=== PATIENT | female | born 1950 | race Caucasian/White ===

== ENCOUNTER → 2021-11-04 10:26 | Outpatient (CLI) | payer OTHER, SELFPAY ==
--- NOTE | ~2021-11-04 | DEXA_ITS ---
Bone Density Report Name: EARLENE MILLIGAN Age: 70 Sex: Female Ethnicity: White Date of : 1950 Indication: osteopenia; postmenopausal Referring Provider: Rizwana, Hilary Coats Study: Bone densitometry was performed. Exam Date: November 04, 2021 Accession number: [id number] Bone Density: Region BMD T-score Z-score Classification AP Spine (L1-L4) 0.909 -1.3 0.8 Osteopenia Femoral Neck (Left) 0.576 -2.5 -0.7 Osteoporosis Total Hip (Left) 0.731 -1.7 -0.3 Osteopenia Femoral Neck (Right) 0.611 -2.1 -0.4 Osteopenia Total Hip (Right) 0.745 -1.6 -0.2 Osteopenia Total Hip Mean 0.738 -1.7 -0.3 Osteopenia World Health Organization criteria for BMD impression classify patients as: Normal (T-score at or above -1.0), Osteopenia (T-score between -1.0 and -2.5), or Osteoporosis (T-score at or below -2.5). 10-year Fracture Risk: FRAX not reported because: Some T-score for Spine Total or Hip Total or Femoral Neck at or below -2.5 Previous Exams: Region Exam Age BMD T-score BMD Change BMD Change Date g/cm2 vs Baseline vs Previous AP Spine(L1-L4) 11/04/2021 70 0.909 -1.3 0.006 0.006 02/18/2018 67 0.902 -1.3 Total Hip(Left) 11/04/2021 70 0.731 -1.7 -0.025 0.014 02/18/2018 67 0.716 -1.8 -0.039 -0.039 11/14/2002 52 0.755 -1.5 Total Hip(Right) 11/04/2021 70 0.745 -1.6 -0.206 -0.011 02/18/2018 67 0.756 -1.5 -0.195 -0.195 11/14/2002 52 0.950 0.1 *Denotes significance at 95% confidence level, LSC for AP Spine = 0.022 g/cm2, LSC for Total Hip = 0.027 g/cm2 Clinical Information Provided by Patient: Has used the following medications: Actonel (i.e. risedronate), Vitamin D Patient maximum height was 60 Menopause Age: 48 Drinks caffeinated beverages Onset of menses at age 13 Number of children 2 Impression: The patient has osteoporosis, based on the Left Femoral Neck T-score. No significant bone loss was observed. Discussion: INCREASED RISK OF FRACTURE. BONE DENSITY IS UNDESIRABLY LOW AT ONE OR MORE SKELETAL SITES, CONSISTENT WITH POSTMENOPAUSAL OSTEOPOROSIS. This patient's lowest T-score meets the World Health Organization's (WHO) criteria for osteoporosis at one or more sites (T-score -2.5 or below). In untreated patients, the risk of osteoporotic fracture increases approximately two-fold for each 1.0 SD decrease in T-score. Low bone density
== END ==
PROVIDERS: PCP Internal Medicine; Visit Provider Internal Medicine
DX: Z78.0 Asymptomatic menopausal state (principal); M85.88 Other specified disorders of bone density and structure, other site; M81.0 Age-related osteoporosis without current pathological fracture; M85.851 Other specified disorders of bone density and structure, right thigh
CPT/HCPCS: 77080

== ENCOUNTER → 2022-08-06 13:29 | Outpatient (CLI) | payer OTHER, SELFPAY ==
--- NOTE | ~2022-08-06 | MM_ITS ---
EXAMINATION: MM screening ramos RT w hira HISTORY: Screening mammogram TECHNIQUE: Craniocaudal and mediolateral oblique 3-D tomosynthesis images were obtained and synthetic 2-D images were generated. CAD analysis was submitted and interpreted. COMPARISON: April 10, 2015, March 27, 2014, March 24, 2013 right screening mammogram examinati ons; status post left mastectomy for breast cancer. BREAST PARENCHYMAL COMPOSITION: The breasts are heterogeneously dense, which may obscure small masses . FINDINGS: There is no evidence of suspicious mass, calcification, or architectural distortion to sugg est malignancy in either breast. There has been no suspicious interval change. IMPRESSION: 1. Status post left mastectomy for breast cancer. No mammographic evidence of right breast malignancy . 2. Recommend routine screening mammography in one year. BI-RADS Category 1: Negative Reviewed, dictated and finalized at location A. IMPRESSION: 1. Status post left mastectomy for breast cancer. No mammographic evidence of r ight breast malignancy. 2. Recommend routine screening mammography in one year. BI-RADS Category 1: Negative
== END ==
PROVIDERS: PCP Internal Medicine; Visit Provider Internal Medicine
DX: Z12.31 Encounter for screening mammogram for malignant neoplasm of breast (principal)
CPT/HCPCS: 77063; 77067

== ENCOUNTER 2023-09-10 13:52 | Outpatient (CLI) | payer OTHER, SELFPAY ==
--- NOTE | ~2023-09-10 | MM_ITS ---
EXAMINATION: MM screening ramos RT w hira HISTORY: Screening TECHNIQUE: Craniocaudal and mediolateral oblique 3-D tomosynthesis images were obtained and synthetic 2-D images were generated. CAD analysis was submitted and interpreted. COMPARISON: Comparison to multiple prior studies sequentially, with oldest reviewed study dated 10/2014. BREAST PARENCHYMAL COMPOSITION: Not dense: There are scattered areas of fibroglandular density. FINDINGS: There is no evidence of suspicious mass, calcification, or architectural distortion to sugg est malignancy in the right breast. There has been no suspicious interval change. IMPRESSION: 1. No mammographic evidence of malignancy. 2. Recommend routine screening mammography in one year. BI-RADS Category 1: Negative Reviewed, dictated and finalized at location B.
== END 2023-09-10 13:53 ==
LOC: MICIMG 13:53
PROVIDERS: PCP Internal Medicine; Visit Provider Internal Medicine
DX: Z12.31 Encounter for screening mammogram for malignant neoplasm of breast (principal)
CPT/HCPCS: 77063; 77067

== ENCOUNTER 2024-09-12 13:49 | Outpatient (CLI) | payer OTHER, SELFPAY ==
--- NOTE | ~2024-09-12 | MM_ITS ---
EXAMINATION: MM screening ramos RT w hira HISTORY: Screening TECHNIQUE: Craniocaudal and mediolateral oblique 3-D tomosynthesis images were obtained and synthetic 2-D images were generated. CAD analysis was submitted and interpreted. COMPARISON: Comparison to multiple prior studies sequentially, with oldest reviewed study dated 04/10/2015. BREAST PARENCHYMAL COMPOSITION: Not dense: There are scattered areas of fibroglandular density. FINDINGS: There is no evidence of suspicious mass, calcification, or architectural distortion to sugg est malignancy in the right breast. There has been no suspicious interval change. IMPRESSION: 1. No mammographic evidence of malignancy. 2. Recommend routine screening mammography in one year. Routine yearly screening mammogram and regular clinical breast examination are recommended. BI-RADS CATEGORY 1 - NEGATIVE Reviewed, dictated and finalized at location B.
== END 2024-09-12 13:50 | disposition home or self-care (01) ==
LOC: MICIMG 13:51
PROVIDERS: PCP Internal Medicine; Visit Provider Internal Medicine
DX: Z12.31 Encounter for screening mammogram for malignant neoplasm of breast (principal)
CPT/HCPCS: 77063; 77067

== ENCOUNTER 2024-10-24 13:05 | Outpatient (CLI) | payer OTHER, SELFPAY ==
--- OUTSIDE RECORDS SUMMARY | 2024-09-21 05:02 | XMS_ITS | Continuity of Care Document ---
Author Organization [facility] Address [address] [place] [address] Phone Care Team Providers Care Side Boss Name Role Phone RizwanaHilary presley DO Unavailable Unavailable Allergies, Adverse Reactions, Alerts Substance Reaction Status Criticality No Known Allergies Active No Inform ation Medications Medication Instructions Dosage Effective Dates (start - stop) Status Comments FAMOTIDINE 40 MG TABLET TAKE 1 TABLET BY MOUTH EVERYDAY AT BEDTIME - Active omeprazole 40 mg capsule,delayed release take 1 capsule by oral route twice a day - Active ROSUVASTATIN CALCIUM 5 MG TAB TAKE 1 TABLET BY MOUTH EVERY DAY - Active biotin 1 mg tablet Take one daily - Ac tive Refresh Optive 0.5 %-0.9 % eye drops Use as directed - Active Stool Softener 100 mg capsule take 1 capsule by oral route every day at bedtime as needed 100 MG - Active PreserVision AREDS-2 250 mg-200 unit-40 mg-1 mg capsule take 1 capsule by oral route 2 times every day 1 capsule - Active otc Calcium 600 600 mg calcium (1,500 mg) tablet 1 po daily - Active OTC Vitamin D3 2,000 unit capsule 1 po daily - Active OTC Vitamin C 100 mg tablet 1 po daily - Active 180mg OTC Procedures Procedure Date OFFICE [id number] CBC, INC PLATELETS AND DIFFERENTIAL COMPREHEN METABOLIC PANEL CMP LIPID PANEL THYROID STIMULATION HORMONE(TSH) 2024 ROUTINE VENIPUNCTURE [place] OFFICE [id number]-KAN-[id number] BODY MASS INDEX DOCD SYST BP LT 130 MM HG DIAST BP < 80 MM HG PNEUMOVAX ADM MEDICARE Pneumococcal Conjugate Vaccine (PCV20) J TELEPHONE E&M SERVICE BY A PHYSICIAN;5-1 0 MINUTES OF MEDICAL DISCUSSION CBC, INC PLATELETS AND DIFFERENTIAL COMPREHEN METABOLIC PANEL CMP LIPID PANEL URINALYSIS, REFLEX (UA) FALL RISK ASSESSMENT DOC'D PRES/ABSN URINE INCON ASSESS Pt inelig neg scrn depres Admin influenza virus vac FLU VACC PRSV FREE INC ANTIG ROUTINE VENIPUNCTURE IL OFFICE REXIF-ZZI-[id number] BODY MASS INDEX DOCD SYST BP LT 130 MM HG DIAST BP < 80 MM HG CBC, INC PLATELETS AND DIFFERENTIAL COMPREHEN METABOLIC PANEL CMP 4 CREATINE KINASE, TOTAL (CPK,CK) 024 LIPID PANEL PARATHYROID HORMONE (PTH) THYROID STIMULATION HORMONE(TSH) 2023 VITAMIN D, 25-HYDROXY URINALYSIS, DIPSTICK (UA) - Office Lab F ROUTINE VENIPUNCTURE IL OFFICE [id number]-[id number] BODY MASS INDEX DOCD SYST BP GE 130 - 139MM HG DIAST BP 80-89 MM HG CBC, INC PLATELETS AND DIFFERENTIAL COMPREHEN METABOLIC PANEL CMP 3 LIPID PANEL THYROID STIMULATION HORMONE(TSH) 2022 URINALYSIS, REFLEX (UA) Pt inelig neg scrn depres ROUTINE VENIPUNCTURE IL OFFICE [id number] BODY MASS INDEX DOCD SYST BP GE 130 - 139MM HG DIAST BP 80-89 MM HG OFFICE IATRY-CUN-NOGLSRKD BODY MASS INDEX DOCD SYST BP LT 130 MM HG DIAST BP < 80 MM HG CBC, INC PLATELETS AND DIFFERENTIAL COMPREHEN METABOLIC PANEL CMP Pt inelig neg scrn depres ROUTINE VENIPUNCTURE IL OFFICE ZOXNG-WOE-GRETLVXT BODY MASS INDEX DOCD SYST BP GE 130 - 139MM HG DIAST BP 80-89 MM HG FALL RISK ASSESSMENT DOC'D PRES/ABSN URINE INCON ASSESS CBC, INC PLATELETS AND DIFFERENTIAL COMPREHEN METABOLIC PANEL CMP CREATINE KINASE, TOTAL (CPK,CK) 022 LIPID PANEL PARATHYROID HORMONE (PTH) THYROID STIMULATION HORMONE(TSH) 2021 VITAMIN D, 25-HYDROXY URINALYSIS, DIPSTICK (UA) - Office Lab A ROUTINE VENIPUNCTURE OFFICE [id number] BODY MASS INDEX DOCD SYST BP GE 130 - 139MM HG DIAST BP 80-89 MM HG X-RAY EXAM OF ANKLE, COMPLETE 2 OFFICE QNEHX-KIX-[id number] BODY MASS INDEX DOCD SYST BP LT 130 MM HG DIAST BP 80-89 MM HG CBC, INC PLATELETS AND DIFFERENTIAL COMPREHEN METABOLIC PANEL CMP 2 LIPID PANEL URINALYSIS, DIPSTICK (UA) - Office Lab J ROUTINE VENIPUNCTURE OFFICE OISHW-ABA-[id number] BODY MASS INDEX DOCD SYST BP GE 130 - 139MM HG DIAST BP 80-89 MM HG Pt inelig neg scrn depres OFFICE GTJJF-VNG-PIWHQHSX BODY MASS INDEX DOCD SYST BP GE 130 - 139MM HG DIAST BP 80-89 MM HG DSCHRG MED/CURRENT MED MERGE LIPID PANEL ROUTINE VENIPUNCTURE Transitional Care- First 7 Days Of Disch arge BODY MASS INDEX DOCD SYST BP GE 130 - 139MM HG DIAST BP < 80 MM HG DSCHRG MED/CURRENT MED MERGE COMPREHEN METABOLIC PANEL CMP 1 CREATINE KINASE, TOTAL (CPK,CK) 021 LIPID PANEL ROUTINE VENIPUNCTURE FALL RISK ASSESSMENT DOC'D PRES/ABSN URINE INCON ASSESS Pt inelig neg scrn depres CBC, INC PLATELETS AND DIFFERENTIAL COMPREHEN METABOLIC PANEL CMP 1 LIPID PANEL URINALYSIS, DIPSTICK (UA) - Office Lab A ROUTINE VENIPUNCTURE OFFICE [id number]-YBK-[id number] BODY MASS INDEX DOCD SYST BP GE 130 - 139MM HG DIAST BP 80-89 MM HG OFFICE QBHEE-NCX-RIZLLWDW BODY MASS INDEX DOCD SYST BP GE 130 - 139MM HG DIAST BP < 80 MM HG Chest Xray, 2 Views FALL PLAN OF CARE DOC'D URINE INCON PLAN DOC'D PRES/ABSN URINE INCON ASSESS Pt inelig neg scrn depres CBC, INC PLATELETS AND DIFFERENTIAL COMPREHEN METABOLIC PANEL CMP 0 LIPID PANEL PARATHYROID HORMONE (PTH) SED RATE , RBC SEDIMENTATION RATE,(ESR) THYROID STIMULATION HORMONE(TSH) 2019 VITAMIN D, 25-HYDROXY URINALYSIS, DIPSTICK (UA) - Office Lab F ROUTINE VENIPUNCTURE OFFICE ZPFLO-[id number]-LYUGESZV BODY MASS INDEX DOCD SYST BP GE 130 - 139MM HG DIAST BP < 80 MM HG PNEUMOVAX ADM MEDICARE PNEUMOVAX IMMUNIZATION OFFICE HCAQE-SUR-HKLPWMLK BODY MASS INDEX DOCD SYST BP GE 130 - 139MM HG DIAST BP < 80 MM HG OFFICE EJTID-HXW-OTBFETGZ BODY MASS INDEX DOCD SYST BP LT 130 MM HG DIAST BP < 80 MM HG URINALYSIS, DIPSTICK (UA) - Office Lab N OFFICE EVDTH-DYW-JOGTNYUE BODY MASS INDEX DOCD SYST BP LT 130 MM HG DIAST BP < 80 MM HG Advance Directives Directive Yes / No Effective Date File Name Life Support Not Answered N/A N/A Intubation Not Answered N/A N/A Antibiotics Not Answered N/A N/A IV Fluid Support Not Answered N/A N/A Tube Feed Not Answered N/A N/A Other Directive N/A N/A WARNING:The information contained in this section is historical and is provided for information only and does not constitute a legal document or any assurance that the information is still accurate. Please verify the information with the valles of the legal document before using it for clinical purposes. Encounters Encounter Description Practice Location Reason(s) For Visit Diagnoses Date Provider Providers Copied on Encounter [facility], [address], [place], [place], [id number] , [place] tel: [phone] [facility] No Information 5 Rizwana Richard. [address] [place] [address], [id number] , [place]. tel: [phone] OFFICE WJBJF-EUC-YFT ITED [facility], [address], [place], [place], [address] , [place] tel: [phone] [facility] No Information 5 Carson Acevedo. [address] [place] [address], [address], [place], [place], [address] , [place]. tel: [phone] Referring Provider: Kristina Byrd, [address] [place] [address] [address], [place], [address] . tel:[phone] [facility], [address], [place], [place], [address] , [place] tel: [phone] [facility] No Information 5 Jensen Calvillo. [address] [place] [address], [address], [place]. tel: [phone] [facility], [address], [place], [place], [address] , [place] tel: [phone] [facility] No Information 5 Leona Dixon. [address] [place] [address], [address], [place], [place], [address] , [place]. tel: [phone] Referring Provider: Karli Styles, [address] [place] [address], [address]. 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 [address] [place] [address], [address], [place]. tel: [phone] Referring Provider: Hilary Bell, [address] [place] [address], [address] . tel:[phone] TELEPHONE E&M SERVICE BY A PHYSICIAN;5-1 0 MINUTES OF MEDICAL DISCUSSION [facility], [address], [place], [place], [address] , [place] [facility]: [phone] [facility] Pain in unspecified hip 4 Jensen Calvillo. [address] [place] [address], [address], [place]. tel: [phone] Referring Provider: Hilary Bell, [address] [place] [address], [address] . tel:[phone] [facility], [address], [place], [place], [address] , [place] tel: [phone] [facility] No Information 4 Jensen Calvillo. [address] [place] [address], [address], [place]. tel: [phone] [facility], [address], [place], [address] , [place] tel: [phone] [facility] No Information 4 Leona Dixon. [address] [address], [place], [place], [address] , [place]. tel: [phone] Referring Provider: Karli Styles, [address] [place] [address], [address]. 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 [address] [place] [address], [address], [place]. tel: [phone] Referring Provider: Hilary Bell, [address] [place] [address], [address] . tel:[phone] [facility], [address], [place], [address] , [place] tel: [phone] [facility] No Information 4 Rizwana Richard. [address] [place] [address], [id number] , [place]. tel: [phone] [facility], [address], [place], [address] , [place] tel: [phone] [facility] Overactive bladder 4 Rizwana Richard. [address] [place] [address], [id number] , [place]. tel: [phone] [facility], [address], [place], [place], [address] , tel: [phone] [facility] No Information 4 Leona Dixon. [address], [id number] , . tel: [phone] Referring Provider: Hilray Bell, [address] [place] [address], [address] . tel:[phone] OFFICE XYGRL-LOM-IRW JEET [facility], [address], [place], [place], [address] , tel: [phone] [facility] 6 month appt (chief complaint)Architectural Intern yash Conditions (chief complaint) Gastro-esophag eal reflux disease without esophagitisAth erosclerosis of aortaOther hyperlipidemia Degenerative disease of nervous system, unspecifiedRad iculopathy, lumbar regionOveracti ve bladderAge-rel ated osteoporosis without current pathological fracture 4 Rizwana Richard. [address] [place] [address], [id number] , . tel: [phone] Referring Provider: Hilary Bell, [address] [place] [address], [address] . tel:[phone] [facility], [address], [place], [place], [address] , [place] tel: [phone] [facility] No Information 3 Leona Sebastiann. [address], [id number] , . tel: [phone] Referring Provider: Cathy Love, [address] [place] [address], [address] . tel:[phone] OFFICE LSZUU-DKL-QQR JEET [facility], [address], [place], [place], [address] , [place] tel: [phone] [facility] Chronic Conditions (chief complaint) Body mass index [BMI] 24.0-24.9, adultConstipat ion, unspecifiedOve ractive bladderAge-rel ated osteoporosis without current pathological fractureGastro -esophageal reflux disease without esophagitisOth er hyperlipidemia 3 Kate Morgan. [address] [place] [address], [id number] , [place]. tel: [phone] Referring Provider: Hilary Bell, [address] [place] [address], [address] . tel:[phone] OFFICE IJWHB-OHR-TVL ANDED [facility], [address], [place], [address] , [place] tel: [phone] [facility] Breast pain. (chief complaint) Breast pain, rightPersonal history of malignant neoplasm of breastRib pain on right sideOveractive bladder 3 Jensen Calvillo. [address] [place] [address], [address], [place]. tel: [phone] Referring Provider: Hilary Bell, [address] [place] [address], [place], [address] . tel:[phone] [facility], [address], [place], [place], [address] , [place] tel: [phone] [facility] No Information 3 Leona Dixon. [address], [id number] , . tel: [phone] Referring Provider: Karli Styles, [address] [place] [address], [place], [address]. tel:[phone] OFFICE TNLZB-YRB-HQR JEET [facility], [address], [place], [address] , tel: [phone] [facility] 6 month (chief complaint)Architectural Intern yash Conditions (chief complaint) Aortic atherosclerosi sDegenerative disease of nervous system, unspecifiedOve ractive bladderPersona l history of malignant neoplasm of breastAge-rela madiha osteoporosis without current pathological fractureGastro -esophageal reflux disease without esophagitisBle pharospasmIrri table bowel syndrome, unspecified type 3 Jensen Calvillo. [address] [place] [address], [address], [place]. tel: [phone] Referring Provider: Hilary Bell, [address] [place] [address], [address] . tel:[phone] [facility], [address], [place], [place], [address] , [place] tel: [phone] [facility] No Information 2 Rizwana Richard. [address] [place] [address], [id number] , [place]. tel: [phone] [facility], [address], [place], [place], [address] , tel: [phone] [facility] Asymptomatic menopausal state 2 Rizwana Richard. [address] [place] [address], [id number] , . tel: [phone] [facility], [address], [place], [place], [address] , tel: [phone] [facility] Radiculopathy, lumbar region 2 Rizwana Richard. [address] [place] [address], [id number] , . tel: [phone] [facility], [address], [place], [place], [address] , tel: [phone] [facility] 6 month (chief complaint)Architectural Intern yash Conditions (chief complaint) Hyperlipidemia , unspecified hyperlipidemia typeGastro-eso phageal reflux disease without esophagitisOAB (overactive bladder)Lumbar radiculopathyA ge-related osteoporosis without current pathological fracturePerson al history of malignant neoplasm of breastEncounte r for screening mammogram for malignant neoplasm of breastEncounte r for screening mammogram for malignant neoplasm of breastPost-men opause 2 Rizwana Richard. [address] [place] [address], [id number] , [place]. tel: [phone] Referring Provider: Hilary Bell, [address] [place] [address], [address] . tel:[phone] OFFICE JQGSE-CBZ-HID ANDED [facility], [address], [place], [place], [address] , tel: [phone] [facility] musculoskeleta l pain (chief complaint)dyst rophic nail (chief complaint) Body mass index [BMI] 23.0-23.9, adultAcute right ankle painDystrophic nail 2 Kate Morgan. [address] [place] [address], [id number] , [place]. tel: [phone] Referring Provider: Hilary Bell, [address] [place] [address], [place], [address] . tel:[phone] OFFICE TFTFC-RPG-PAI JEET [facility], [address], [place], [place], [address] , tel: [phone] [facility] Chronic Conditions (chief complaint) Hyperlipidemia , unspecified hyperlipidemia typeCerebral atrophyAortic atherosclerosi sGastro-esopha geal reflux disease without esophagitisDry eyes, bilateralBleph arospasmOAB (overactive bladder) 2 Jensen Farmerchristo. [address] [place] [address], [address], . tel: [phone] Referring Provider: Hilary Bell, [address] [place] [address], [place], [address] . tel:[phone] OFFICE KNRQS[facility]FM[facility], [address], [place], [address] , [place] tel: [phone] [facility] eye changes (chief complaint) Body mass index [BMI] 24.0-24.9, adultVision changes 1 Carloz Rodriguez. [address] [place] [address], [id number] , [place]. tel: [phone] Referring Provider: Hilary Bell, [address] [place] [address], [address] . tel:[phone] Transitional Care- First 7 Days Of Discharge [facility], [address], [place], [place], [address] , tel: [phone] [facility] Hospital Follow-Up (chief complaint)Architectural Intern yash Conditions (chief complaint) Hyperlipidemia , unspecified hyperlipidemia typeCerebral atrophyBilater al nonexudative age-related macular degeneration, unspecified stageLumbar radiculopathy 1 Kate Morgan. [address] [place] [address], [id number] , [place]. tel: [phone] Referring Provider: Hilary Bell, [address] [place] [address], [address] . [phone] [facility], [address], [place], [place], [address] , tel: [phone] [facility] No Information 1 Rizwana Richard. [address] [place] [address], [id number] , [place]. tel: [phone] Referring Provider: Hilary Bell, [address] [place] [address], [address] . [phone] [facility], [address], [place], [place], [address] , tel: [phone] [facility] Breast pain, left 1 Rizwana Richard. [address] [place] [address], [id number] , [place]. tel: [phone] [facility], [address], [place], [place], [address] , tel: [phone] [facility] Hyperlipidemia , unspecified hyperlipidemia typeAortic atherosclerosi sBody mass index (BMI) 26.0-26.9, adultGastro-es ophageal reflux disease without esophagitisEnc ntr screen mammogram for malignant neoplasm of breastBreast pain, right 1 Rizwana Richard. [address] [place] [address], [id number] , [place]. tel: [phone] Referring Provider: Hilary Bell, [address] [place] [address], [address] . tel:[phone] OFFICE PWTNZ-IGU-JPD JEET [facility], [address], [place], [place], [address] , tel: [phone] [facility] fever (chief complaint)Architectural Intern yash Conditions (chief complaint) Body mass index (BMI) 26.0-26.9, adultGastro-es ophageal reflux disease without esophagitisAor tic atherosclerosi Cherelle-related osteoporosis without current pathological fractureHyperl ipidemia, unspecified hyperlipidemia typeFever, unspecified fever causeOAB (overactive bladder)Leukoc ytes in urine May- 1 Kate Morgan. [address] [place] [address], [place], [place], [address] , [place]. tel: [phone] Referring Provider: Hilary Bell, [address] [place] [address], [address] . tel:[phone] OFFICE MVLPS-BXO-GJS ANDED [facility], [address], [place], [address] , tel: [phone] [facility] Chronic Conditions (chief complaint) Abnormal eye findingFever, unspecified fever cause 0 Jensen Calvillo. [address] [place] [address], [place], [address], [place]. tel: [phone] Referring Provider: Hilary Bell, [address] [place] [address], [place], [address] . [phone] [facility], [address], [place], [place], [address] , tel: [phone] [facility] Shortness of breath 0 Rizwana Richard. [address] [place] [address], [id number] , [place]. tel: [phone] Referring Provider: Hilary Bell, [address] [place] [address], [place], [address] . tel:[phone] OFFICE RFOTT-HCO-LNJ JEET [facility], [address], [place], [address] , [place] tel: [phone] [facility] Chronic Conditions (chief complaint) Age-related osteoporosis without current pathological fractureGastro -esophageal reflux disease without esophagitisPer ratna history of malignant neoplasm of breastConstipa tion, unspecifiedBod y mass index (BMI) 25.0-25.9, adultLeukocyte s in urine 0 Rizwana Richard. [address] [place] [address], [id number] , [place]. tel: [phone] Referring Provider: Hilary Bell, [address] [place] [address], [address] . tel:[phone] [facility], [address], [place], [place], [address] , tel: [phone] [facility] Encntr screen mammogram for malignant neoplasm of breast 0 Rizwana Richard. [address] [place] [address], [id number] , [place]. tel: [phone] [facility], [address], [place], [place], [address] , tel: [phone] [facility] No Information 9 Rizwana Richard. [address] [place] [address], [id number] , [place]. tel: [phone] Referring Provider: Hilary Bell, [address] [place] [address], [address] . tel:[phone] OFFICE HHPFW-GNA-IWK ANDED [facility], [address], [place], [place], [address] , tel: [phone] [facility] Chronic Conditions (chief complaint) Body mass index (BMI) 25.0-25.9, adultLow back painDysuria 2201 9 Jensen Gaylin. [address] [place] [address], [address], [place]. tel: [phone] Referring Provider: Hilary Bell, [address] [place] [address], [address] . tel:[phone] OFFICE ULALB-PNB-JWU ANDED [facility], [address], [place], [place], [address] , tel: [phone] [facility] Chronic Conditions (chief complaint) Body mass index (BMI) 25.0-25.9, adultUrinary frequencyLeuko cytes in urine 9 Jensen Calvillo. [address] [place] [address], [address], [place]. tel: [phone] Referring Provider: Hilary Bell, [address] [place] [address], [address] . tel:[phone] [facility], [address], [place], [place], [address] , tel: [phone] [facility] No Information 9 [place] Hilary. [address] [place] [address], [id number] , [place]. tel: [phone] [facility], [address], [place], [place], [address] , tel: [phone] [facility] Pain of toe, unspecified laterality 9 Rizwana Richard. [address] [place] [address], [id number] , [place]. tel: [phone] OFFICE NUTLC-PFQ-HOH JEET [facility], [address], [place], [place], [address] , tel: [phone] [facility] Chronic Conditions (chief complaint) Closed compression fracture of L1 lumbar vertebra with delayed healing, subsequent encounterOsteo porosis, unspecified osteoporosis type, unspecified pathological fracture presenceGastro esophageal reflux disease, esophagitis presence not specifiedChron ic midline low back pain without sciatica 9 Jensen Gaylin. [address] [place] [address], [address], [place]. tel: [phone] Referring Provider: Hilary Bell, [address] [place] [address], [address] . tel:[phone] [facility], [address], [place], [place], [address] , tel: [phone] [facility] Chronic midline low back pain without sciaticaClosed compression fracture of L1 lumbar vertebra with delayed healing, subsequent encounterHisto ry of breast cancerOther constipationAg e-related osteoporosis without current pathological fractureBody mass index (BMI) 26.0-26.9, adult May- 9 Rizwana Richard. [address] [place] [address], [id number] , [place]. tel: [phone] Referring Provider: Hilary Bell, [address] [place] [address], [address] . tel:[phone] [facility], [address], [place], [place], [id number] , tel: [phone] [facility] Wedge compression fracture of first lumbar vertebra, initial encounter for closed fracture 9 Rizwana Richrad. [address] [place] [address], [id number] , [place]. tel: [phone] [facility], [address], [place], [place], [id number] , tel: [phone] [facility] Wedge compression fracture of first lumbar vertebra, initial encounter for closed fracture 8 Rizwana Richard. [address] [place] [address], [id number] , [place]. tel: [phone] [facility], [address], [place], [place], [id number] , [place] tel: [phone] [facility] Body mass index (BMI) 25.0-25.9, adultScreening for malignant neoplasm of breastDisorder of boneChronic midline low back pain without sciaticaOther chronic painPost-nasal dripEncounter for screening for malignant neoplasm of colon 8 Kate Morgan. [address] [place], [place], [id number] , [place]. tel:[phone] Referring Provider: Hilary Bell, [address] [place], [address] . tel:[phone] Family History Family Member Type Diagnosis Age At Onset Sister Problem Cardiovascular disease Immunizations Vaccine Date Status Comments Pneumococcal conjugate PCV20 administered Source: New Immunization Record Fluzone High-Dose Trivalent, preservative free administered Source: New Immuniza tion Record Fluzone High-Dose, high dose , preservative free administered Note: [facility] ; Source: Other Provider Fluzone High-Dose, high dose , preservative free administered Note: [facility] ; Source: Other Provider Pfizer (Archie-Sucrose) COVID1 9 Vaccine, 0.3mL per dose, 2 doses, administered 21 days apart administered Note: [facility] ; So urce: Other Provider Fluzone High-Dose, high dose , preservative free administered Note: [facility]ese ; Source: Other Provider Pfizer-BioNTech COVID19 Vaccine, 0.3mL per dose, 2 doses, administered 21 days apart administered Note: [facility] ; Source: Other Provider Pfizer-BioNTech COVID19 Vaccine, 0.3mL per dose, 2 doses, administered 21 days apart administered Note: [facility] ; Source: Other Provider Pneumococcal polysaccharide PPV23 administered Source: New Immuniza tion Record Fluzone High-Dose, high dose , preservative free administered Note: [facility] ; So urce: Other Provider Pneumococcal conjugate PCV 13 administere d Source: New Immunization Record Fluzone High-Dose, high dose , preservative free administered Note: [facility] ; So urce: Other Provider Payers Payer name Insurance type Covered libertarian ID Authoriza tion(s) InformedDNA MB [id number] InformedDNA MB [id number] InformedDNA [id number] Social History Type Description Quantity Date Captured Comments Alcohol Use Details Unknown Caffeine Use Details Unknown Tobacco Use Status No Information Smoking Status No Information Sex Female Sexual Orientation Straight or heterosexual Gender Identity Female Chief Complaint And Reason For Visit No Information Reason For Referral Reason For Referral No Information Plan Of Treatment Date Type Action Status Goal Dietary manageme nt education, guidance, and counseling completed Goal Dietary manageme nt education, guidance, and counseling completed Goal Dietary manageme nt education, guidance, and counseling completed Goal Dietary manageme nt education, guidance, and counseling completed Goal Dietary manageme nt education, guidance, and counseling completed Goal Dietary manageme nt education, guidance, and counseling completed Goal Dietary manageme nt education, guidance, and counseling completed Referral Ordered: Gume Caruso [facility] : Urology (related to OAB (overactive bladder)) ordered Referral Referred To: Gume Caruso [address], [address] [phone] Ordered: Referrals: Urology. Gume Caruso. Evaluation/diagnostic/treatment - Level 3 ordered Referral Referred To: Nubia Leslie [address] [facility]
[address], [phone] Ordered: Referrals: Gastroenterology. Nubia Leslie. Evaluation/diagnostic/treatment - Level 3 ordered Referral Referred To: Merari Doyle MD [address] [place] [address], [address] [phone] Ordered: Referrals: Urology. Merari Doyle MD. Evaluation/diagnostic/treatment - Level 3 ordered Referral Referred To: [address] [place], [phone] Ordered: DEXA of spine and hip ordered Referral Referred To: [address] [place], [place], [id number] [phone] Ordered: SCREENING MAMMOGRAM (CAD) Bilateral Appointment date/timeframe: 05/27/2022 ordered Referral Ordered: X-RAY EXAM OF ANKLE, COMPLETE, MIN 3 VIEWS Right Right ankle ordered Referral Referred To: [facility] Care Opthalmology Ordered: Referrals: Ophthalmology. [facility] Care Opthalmology. Evaluation/diagnostic/treatment - Level 3 Appointment date/timeframe: 06/05/2021 ordered Referral Referred To: Dr. Eloisa Mcghee Ordered: Referrals: Pain Medicine. Dr. Eloisa Mcghee. Evaluation/diagnostic/treatment - Level 3 Appointment date/timeframe: 11/06/2021 ordered Referral Referred To: [address] [place] [address], [address] [phone] Ordered: US breast left limited Appointment date/timeframe: 10/11/2020 ordered Referral Referred To: [address] [place] [address], [phone] Ordered: DIAGNOSTIC MAMMOGRAM (CAD) ONE BREAST Right Appointment date/timeframe: 11/15/2020 ordered Referral Referred To: Dr. Rukhsana Gonzalez Ordered: Referrals: Ophthalmology. Dr. Rukhsana Gonzalez. Evaluation/diagnostic/treatment - Level 3 Appointment date/timeframe: 07/14/2019 ordered Referral Ordered: Chest Xray, 2 Views ordered Referral Referred To: [address] [place] [address], [address] [phone] Ordered: SCREENING MAMMOGRAM (CAD) Bilateral breast Appointment date/timeframe: 03/28/2019 ordered Referral Referred To: Elmer Shin Ordered: Referrals: Podiatry. Elmer Shin. Evaluation/diagnostic/treatment - Level 3 Appointment date/timeframe: 11/02/2018 ordered Referral Referred To: Kimani Rangel MD [address] [place] [address], [address] [phone] Ordered: Referrals: Gastroenterology. Kimani Rangel MD. Consult - Level 1 Appointment date/timeframe: 09/28/2018 ordered Referral Referred To: Eloisa Mcghee MD Ordered: Referrals: Pain Management. Eloisa Mcghee MD. Consult - Level 1 Appointment date/timeframe: 12/23/2018 ordered Appointment Malu Caruso BOOKED Patient Education Hiatal Hernia: Care Ins tructions completed History Of Present Illness Encounter Date Complaint History Of Prese nt Illness 3 month Pt unsure of las t [facility]xaDarla [facility] pt has not scheduledNumber given Chronic Conditions *See Chronic Conditions HPI Chronic Conditions *See Chronic Conditions HPI 6 month She is here marina damon.She is agreeable to flu shot today. chronic conditions *See Chronic Conditions HPI Chronic Conditions *See Chronic Conditions HPI 6 month appt pt due for:n/aRe cent visits:GI - Dr Rangel - pt does not recall dateOphthalmology - [facility] - pt does not recall dates - pt states she gets seen every 4 monthsFuture appt:Ophthalmology - [facility] - pt does not recall dates - pt states she gets seen every 4 monthsPodiatry - April - pt unsure of dateVaccinations due:[facility] [place] - pt unsure of dateTD/TDAP - pt denies recentSHINGRIX - pt has not receivedOutstanding referrals:n/a -GERDpt denies recent nausea, regurgitationpt does not have her medications or medication list with her today. pt was unsure of some of her medications listed in her chart. pt has an old bottle of Omeprazole, which she states she takes those pills twice a day. Said bottle contains different medication tablets and capsules mixed in it. Chronic Conditions *See Chronic Conditions HPI Breast pain. Patient is here as an add-on to discuss right breast pain. She has a history of left breast cancer status post mastectomy and reconstructive surgery, overactive bladder.RT breast pain x 6 daysDenies other symptomsHx LT breast cancer x 23 years ago.describes pain as a knife stabbing melasts a few hours.she started using CBD cream a week and it is helping.tried taking tylenol with minimal relief.endorses caffeine. no nipple discharge. recent mammogram done 08.06.22 at [facility] normal.OAB- under care of Dr. Mon. Currently taking trospium which is helped with urgency and incontinence. Follows with urology yearly. Has upcoming appointment. 6 month Pt no showed 02/18 mammogram. Rescheduled 05/27/22Botox injections in bilateral eyesIntermittent diarrhea and constipation since OctoberEndorses gas, bloating, abdominal crampingTakes Benefiber - some relieflast colonoscopy in January 2022 Chronic Conditions *See Chronic Conditions HPI 6 month Uses cream for b ack pain - states it helpsTaking biotin to help toe nail growthDenies symptoms nowNo SOB, chest pain Chronic Conditions *See Chronic Conditions HPI musculoskeletal pain Onset: 2 we eks ago. It occurs occasionally. Location: right ankle. The pain radiates to the right foot. The pain is aching. Context: there is no injury. The pain is aggravated by walking. The pain is relieved by OTC medicines (acetaminophen). dystrophic nail The patient was seen by podiatry for dystrophic nail.Daughter, Leann, states a biopsy was taken.will request records Chronic Conditions *See Chronic Conditions HPI eye changes pt presented for acute visit for c/o right eye changesstates the right eye was blood shot for 5 daysalso states it is completely resolved today, which she attributes to taking more vitaminspt covered either eye and was able to see without reports of any difficultydenies associated blurred vision, vision changes, eye pain, or discharge; denies HAs or dizzinessstates her dtr insisted she have evaluation today, despite the resolution of sxhx mac degeneration, scheduled with [facility] other complaints or concerns Hospital Follow-Up The patient w as seen today for a hospital follow-up visit. Details regarding this most recent admission include: The patient presents with daughter, Leann, for hospital f/u.She was hospitalized at [facility] from 11/27 - 11/29 after presenting to the ED with complaints of confusion after falling on 11/21.Patient reports falling down approximately 15 stairs the evening due to not being able to see in the dark. Labs were normal.Head CT was concerned vascular calcifications, mild small vessel ischemic changes, and volume loss.Cervical CT, CXR, pelvic x-ray, and brain MRI were negative for acute changes.Lumbar x-ray showed a compression deformity of L4 and recommended a f/u CT scan but this has been present for several years and was noted on lumbar x-ray in 2018.The patient reports increased midline low back pain since the fall.denies taking medication for the pain; has seen Dr. Mcghee for lumbar radiculopathy and received injections in the past and would like to returnPatient failed her [facility] 02/14 which was repeated on the day of discharge with a score of 13/30.She was recommend to stay with family until she could transition to an [facility] due to concerns for dementia.Her daughter denies concerns for dementia; states the [facility] was not appropriate for the patient education level.The patient drives during the day but does not drive after 5pm due to her vision.Both the patient and her daughter deny issues with getting lost while driving.She lives on her own, cooks, and conducts ADLs without concerns.also reports managing her finances without issues and compliance with her medicationsKelly states she is looking for a place without stairs for the patient to move and visits frequently.will repeat a mini mental exam at her next follow up Chronic Conditions *See Chronic Conditions HPI Chronic Conditions *See Chronic Conditions HPI fever Patient reports running a fever every morning for several months.denies checking her temperature; states this resolves with taking an aspirin or using a cold towelhas received both COVID vaccinesdenies cough, chills, dysuria, fatigue, nausea, vomiting, constipation, diarrhea, and lymphadenopathyUrine was positive for leukocytes today Chronic Conditions *See Chronic Conditions HPI Chronic Conditions *See Chronic Conditions HPI Chronic Conditions *See Chronic Conditions HPI Chronic Conditions *See Chronic Conditions HPI Chronic Conditions *See Chronic Conditions HPI Functional Status Date Functional Assessmen t No Information Instructions Date Instruction Additional Infor leni I will check to see if there are any urologist in network with bharat at [facility].If so I will let you know and we will send referral.Call with any questions or concernsLabs todayPrevnar 20 todayReturn in 6 months Related to Overactive bladder Continue follow-up w ith injections and call for referrals. 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 Levels will be checked. Related to Other hyperlipidemia Continue on current medication. Continue to hold off on the alendronate.Call if this worsens Related to Gastro-esophageal reflux disease without esophagitis This was noted on im aging of the brain.Please call with any memory changes or concerns Related to Degenerative disease of nervous system, unspecified Blood pressure is st able. Continue on the cholesterol medication. Related to Atherosclerosis of aorta We gave you the numb er. Please call [facility] to schedule this.You did not tolerate the pill.We may recommend an injection once we review your test results. Related to Age-related osteoporosis without current pathological fracture Disease process Disease process This may explain sarahy e of your symptoms.Eat smaller more frequent meals and avoid any foods that cause issues or pain.As above, will refer you to Dr. Leslie.Call with any questions or concernsCBC, CMP, lipids, urine todayFlu shot todayReturn in 3 months Related to Hiatal hernia with GERD Continue follow-up with urology. Related to Overactive bladder Continue on current medication. Levels will be monitored. Related to Other hyperlipidemia Due to your acid ref lux symptoms I like you to stop your weekly bone pill alendronate.You are due for a bone density. I will send this order. Related to Age-related osteoporosis without current pathological fracture Disease process Urinary Incontinence Fall Risk Prevention Disease process call me if your back pain worsen s Related to Radiculopathy, lumbar region call me if you feel your memory is getting worse Related to Degenerative disease of nervous system, unspecified call me if your reflux worsens R elated to Gastro-esophageal reflux disease without esophagitis bone density due lat er this year - we will ordercontinue with the bone density medication Related to Age-related osteoporosis without current pathological fracture levels will be check edcontinue with the current medication Related to Other hyperlipidemia stay off of bladder medication due to side effectscall me if you feel your bladder symptoms get worse Related to Overactive bladder This is hardening of the arteries of your heart found on previous imagingno chest pain. good bp control Related to Atherosclerosis of aorta Disease process We will check your c holesterol levels today and let your know if you need to restart your rosuvastatin Related to Other hyperlipidemia Continue Fosamax onc e weekly as prescribed.Bone density scan is up-to-date Related to Age-related osteoporosis without current pathological fracture Continue your omepra zole as prescribed.Please call the office if your acid reflux worsens Related to Gastro-esophageal reflux disease without esophagitis You reports this is managed.Please call the office if it worsens Related to Overactive bladder Continue with your m edications as prescribed.Call the office if this worsens.We will check routine labs today.Please call with questions or concerns prior to next follow-up.Follow-up again in 6-month Related to Constipation, unspecified Weight monitoring Related to Bod y mass index (BMI) 24.0-24.9, adult Disease process Dietary management e ducation, guidance, and counseling Related to Body mass index (BMI) 24.0-24.9, adult Urinary Incontinence Fall Risk Prevention we will send referra l for you to go back to see urology.Call with any questions or concernsNo labs todayReturn as scheduled Related to Overactive bladder Okay to continue lesli ing Tylenol as needed for pain.Please call if you develop any pain with taking a deep breath, shortness of breath or fever.Please call if this worsens or changes in any way. Related to Rib pain on right side Mammogram recently normal Relate d to Personal history of malignant neoplasm of breast I would like you to look into a more supportive bra.Also, please cut back on caffeine as this can sometimes cause breast pain.You recently had a normal mammogram so this is not something that we need to repeat now. If this continues we may consider ordering a diagnostic mammogram.Okay to continue with the CBD cream. Related to Breast pain, right Disease process Please make sure sung t you are getting enough fiber. Take the Benefiber more often.Also make sure that you are drinking enough water and getting enough activity.Please call if this changes or worsens in any way.Call with any questions or concernsCBC, CMP todayReturn in 6 months Related to Irritable bowel syndrome, unspecified type This is hardening of the arteries of your heart found on previous imagingno chest pain.good bp control Related to Aortic atherosclerosis This was noted on pr evious imaging of the brain.This is not uncommon to see with age.please notify office of any significant memory changes. Related to Degenerative disease of nervous system, unspecified continue on the trospium. Relate d to Overactive bladder continue on weekly bone pill Rel ated to Age-related osteoporosis without current pathological fracture please keep the resc heduled mammogram appointment Related to Personal history of malignant neoplasm of breast continue with omeprazole Related to Gastro-esophageal reflux disease without esophagitis Disease process mammogram and bone d ensity will be checked at [facility] Related to Personal history of malignant neoplasm of breast continue with the to pical medication to help with the painkeep up with your walkingcontinue with the bone density medication Related to Age-related osteoporosis without current pathological fracture Continue your omepra zole twice per day as prescribed.Please call if your acid reflux worsens Related to Gastro-esophageal reflux disease without esophagitis continue on your med icationdrink plenty of water Related to OAB (overactive bladder) continue with topica l medication for pain Related to Lumbar radiculopathy continue with the cu rrent medicationlevels will be checked Related to Hyperlipidemia, unspecified hyperlipidemia type Fall Risk Prevention Disease process Urinary Incontinence I will obtain an x-r ay today to rule out abnormalities.You can take Tylenol 1,000 mg up to 4 times a day as needed for pain.Your goal is to increase your activity.Leann is purchasing a step tracker.Try to get at least 5,000 steps per day.Please call if the pain worsens Related to Acute right ankle pain I will request recor wendy from podiatry.You can take biotin to help with nail growth Related to Dystrophic nail Dietary management e ducation, guidance, and counseling Related to Body mass index (BMI) 23.0-23.9, adult Weight monitoring Related to Bod y mass index (BMI) 23.0-23.9, adult We will rule out inf ection todaycontinue on your medicationdrink plenty of waterthese are foods I'd like you to avoid:tomato products, coffee and tea, carbonated beverages, chocolate, orange, maggie and limes, alcoholic beverages, spicy foods, sweeteners, processed foods, onions and cranberriesthese foods can make overactive bladder worseCall with any questions or concernscbc, cmp, lipids, uareturn in 6 months, sooner if needed Please continue to follow COVID precautions including: wearing a mask or face covering in public, washing your hands frequently and remaining socially distant when in public. Related to OAB (overactive bladder) Follow with Dr. 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 continue with the ey e dropsfollow with eye doctor Related to Dry eyes, bilateral Continue your omepra zole once daily as prescribed.Please call if your acid reflux worsens Related to Gastro-esophageal reflux disease without esophagitis We will repeat your cholesterol levels today to determine if you still require medication with your improvement in diet and weight loss.Continue your healthy dietary choices Related to Hyperlipidemia, unspecified hyperlipidemia type This is due to age r elated changes of the brain not uncommonly seen with aging.You state you are not having memory issues and are able to manage your activities of daily living without issues. Related to Cerebral atrophy This is hardening of the arteries of your chest x-ray last year.Blood pressure is well controlled.Continue your medications as prescribed Related to Aortic atherosclerosis Disease process you report this is b etteryou can use akwa tears if it becomes blood shot againplease follow up with [facility] if you notice any changes like worse vision or eye painreturn here as scheduledcall with any questions Related to Vision changes Disease process Dietary management e ducation, guidance, and counseling Related to Body mass index (BMI) 24.0-24.9, adult Weight monitoring Related to Bod y mass index (BMI) 24.0-24.9, adult We will send a refer ral to Dr. Mcghee today.Compression fracture noted on your lumbar x-ray in the hospital is not new Related to Lumbar radiculopathy I would agree it is not safe to drive while dark out.We will send a referral to an alternative warehouse attendant today.Be sure hallways are well lit and clear obstacles to prevent falling Related to Bilateral nonexudative age-related macular degeneration, unspecified stage This is due to age r elated changes of the brain not uncommonly seen with aging.You states you are not having memory issues and are able to manage your activities of daily living without issues.Please call the office with any issues, questions, or concerns prior to your next appointment.Follow up again in 3 months.We will repeat a mini mental exam at this time Related to Cerebral atrophy We will repeat your cholesterol levels today to determine if you still require medication with your improvement in diet and weight loss.Continue your healthy dietary choices Related to Hyperlipidemia, unspecified hyperlipidemia type Disease process We will send urine for culture t rodolfo Related to Leukocytes in urine This is managed by chip serrano.You report improvement with your trospium Related to OAB (overactive bladder) We will check labs t o rule out abnormalities today Related to Fever, unspecified fever cause Cholesterol levels h ave been elevated in the past.We will check levels again today Related to Hyperlipidemia, unspecified hyperlipidemia type This is hardening of the arteries of your chest x-ray last year.Blood pressure is well controlled.Continue your medications as prescribed Related to Aortic atherosclerosis Continue with the daniel ne density medication weekly.Try to do weight bearing exercises.I will send an order for your repeat bone density to see if this is improving Related to Age-related osteoporosis without current pathological fracture Continue your omepra zole once daily as prescribed.Please call if your acid reflux worsens Related to Gastro-esophageal reflux disease without esophagitis Dietary management e ducation, guidance, and counseling Related to Body mass index (BMI) 26.0-26.9, adult Giving encouragement to exercise Related to Body mass index (BMI) 26.0-26.9, adult Urinary Incontinence Fall Risk Prevention Disease process you currently do not have a fever.continue with the tylenol as needed.until you get the results please stay at home and self isolate.we will call you as soon as possibleCall with any questions or concernsno labs today except COVID testreturn in September for 6 month follow up. Continue with social distancing.AVOID CROWDS AVOID TOUCHING YOUR FACE AVOID UNNECESSARY TRAVEL. WASH HANDS OFTEN. CALL WITH QUESTIONS/CONCERNS Related to Fever, unspecified fever cause continue with the ov er the counter eye multivitamin and using the eye drops as neededonce we get the results from your COVID testing, we will let you know when you can return to see the eye doctor.Call with any visual changes.I think your symptoms could be from seasonal allergies.continue with the flonase 1 puff twice a day per nostriltry taking the zyrtec at night to see if that helps with feeling sleepy. Related to Abnormal eye finding Disease process your mammogram was vianey codygee will order it yearly for you Related to Personal history of malignant neoplasm of breast as needed medication for constipationstay well hydratedreturn to me in 6 monthscall me with questions or concernscmp cbc tsh lipids ua to be checked Related to Constipation, unspecified continue with the daniel ne density medication weeklytry to do weight bearing exercises at the gym with Silver Sneakers Related to Age-related osteoporosis without current pathological fracture continue with the ac id reflex medication twice per day Related to Gastro-esophageal reflux disease without esophagitis Disease process Giving encouragement to exercise Related to Body mass index (BMI) 25.0-25.9, adult Urinary Incontinence Fall Risk Prevention Dietary management e ducation, guidance, and counseling Related to Body mass index (BMI) 25.0-25.9, adult Per your request, I will send monistat to your pharmacy. They may not cover this and you will have to pay for this over the counter.you can apply this inside the vagina with the applicator and use the cream to apply to the labia twice a day.take this for 7 days.give me an update on how you are feeling.make sure you insert the medication at night.Call with any questions or concernsreturn as scheduled in March Related to Dysuria ok to continue with the cold packtake tylenol as neededback stretches provided Related to Low back pain Giving encouragement to exercise Related to Body mass index (BMI) 25.0-25.9, adult Dietary management e ducation, guidance, and counseling Related to Body mass index (BMI) 25.0-25.9, adult Disease process please drink plenty of water.I will call you if we need to send a different antibiotic once the urine culture comes backcall if you develop fever, back pain, or nausea/vomiting/signs of dehydration. Related to Urinary frequency we will send the uri ne for cultureCall with any questions or concernsno bloodwork todaywe will send urine for cultureyou will be due for your pneumonia booster in January.You can come in before your scheduled appt with Dr. Wagoner in March if you want Related to Leukocytes in urine Dietary management e ducation, guidance, and counseling Related to Body mass index (BMI) 25.0-25.9, adult Giving encouragement to exercise Related to Body mass index (BMI) 25.0-25.9, adult Disease process back exercises given listen to your bodyas above, will send referral to Dr. Mcghee Related to Chronic midline low back pain without sciatica We can call [facility] and see what you are taking.Call with any questions or concernsmake sure to get your flu shot this fallno labs todayreturn in 6 months- we can give you the pneumonia booster at that time Related to Gastroesophageal reflux disease, esophagitis presence not specified continue on the fosa maxrepeat bone density in 2020 Related to Osteoporosis, unspecified osteoporosis type, unspecified pathological fracture presence I will refer you to see Dr[facility] Mcghee at [facility] per your requestyou need to go back to the radiology department where you had the MRI so that Dr. Mcghee can take a look.call if you have issues getting an appt with Dr. Mcghee. Related to Closed compression fracture of L1 lumbar vertebra with delayed healing, subsequent encounter Disease process Disease process Disease process Assessments Type Assessment Date No Information Patient Care Teams Name Effective Dates (start - stop) Status Members No Information
--- NOTE | ~2024-10-24 | DEXA_ITS ---
Bone Density Report Name: EARLENE MILLIGAN Age: 73 Sex: Female Ethnicity: White Date of : 1950 Indication: osteopenia; Referring Provider: JADIEL, DENISE Coats Study: Bone densitometry was performed. Exam Date: October 24, 2024 Accession number: [id number] Bone Density: Region BMD T-score Z-score Classification AP Spine(L1-L4) 0.923 -1.1 1.1 Osteopenia Femoral Neck (Left) 0.585 -2.4 -0.5 Osteopenia Total Hip (Left) 0.717 -1.8 -0.2 Osteopenia Femoral Neck (Right) 0.554 -2.7 -0.8 Osteoporosis Total Hip (Right) 0.707 -1.9 -0.3 Osteopenia Total Hip Mean 0.712 -1.9 -0.3 Osteopenia World Health Organization criteria for BMD impression classify patients as: Normal (T-score at or above -1.0), Osteopenia (T-score between -1.0 and -2.5), or Osteoporosis (T-score at or below -2.5). 10-year Fracture Risk: FRAX not reported because: Some T-score for Spine Total or Hip Total or Femoral Neck at or below -2.5 Previous Exams: Region Exam Age BMD T-score BMD Change BMD Change Date g/cm2 vs Baseline vs Previous AP Spine (L1-L4) 10/24/2024 73 0.923 -1.1 0.015 (1.6%) 0.015 (1.6%) 11/04/2021 70 0.909 -1.3 Total Hip(Left) 10/24/2024 73 0.717 -1.8 -0.014 (-1.9%) -0.014 (-1.9%) 11/04/2021 70 0.731 -1.7 Total Hip(Right) 10/24/2024 73 0.707 -1.9 -0.038 (-5.1%) -0.038 (-5.1%) 11/04/2021 70 0.745 -1.6 *Denotes significance at 95% confidence level, LSC for AP Spine = 0.022 g/cm2, LSC for Total Hip = 0.027 g/cm2 # Denotes dissimilar scan types or analysis methods Clinical Information Provided by Patient: Has used the following medications: Actonel (i.e. risedronate), Vitamin D Patient maximum height was 60 Menopause Age: 48 Drinks caffeinated beverages Onset of menses at age 13 Number of children 2 Impression: The patient has osteoporosis, based on the Right Femoral Neck T-score. No significant bone loss was observed. Discussion: INCREASED RISK OF FRACTURE. BONE DENSITY IS UNDESIRABLY LOW AT ONE OR MORE SKELETAL SITES, CONSISTENT WITH POSTMENOPAUSAL OSTEOPOROSIS. This patient's lowest T-score meets the World Health Organization's (WHO) criteria for osteoporosis at one or more sites (T-score -2.5 or below). In untreated patients, the risk of osteoporotic fracture increases approximately two-fold for each 1.0 SD decrease in T-score. Low bone density is not the only risk factor for fracture; also consider factors such as patient's age, frailty or poor health, risk of falling, risk of injury, previous osteoporotic fracture, family history of osteoporosis, cigarette smoking, low body weight, etc. Not everyone with low bone mineral density has osteoporosis; osteomalacia and other metabolic bone disorders should also be considered. Patients who have osteoporosis should be evaluated for specific diseases and conditions (secondary causes) that may cause or contribute to bone loss. The [place] Association of Clinical Endocrinologists (AACE) and National Osteoporosis Foundation (NOF) recommend pharmacologic intervention for all postmenopausal women whose T-score is in this range. The patient should follow a healthful lifestyle (good nutrition with adequate calcium and vitamin D, and appropriate weight-bearing exercise). Follow-Up: Consider a repeat BMD and Vertebral Fracture Assessment (VFA) exam in 2 years or sooner if medically necessary, to reassess this patient's status. Reported by: CHANA on 10/24/2024 3:02:00 PM. Reviewed, dictated and finalized at location A.
--- OUTSIDE RECORDS SUMMARY | 2024-10-24 13:13 | XMS_ITS | Clinical Summary ---
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 Overview (05/23/2016): Familial cancer of breast Absence of breast 03/06/2014 Overview (05/23/2016): Absent breast Surgical History Surgery Date Site/Laterality Comments OTHER SURGICAL HISTORY Left Cancer, breast: Mastectomy BREAST RECONSTRUCTION Left breast reconstruction MASTECTOMY Medical History Medical History Date Comments Malignant neoplasm of female breast (HCC) 1999 Cancer, breast; Comments: NICKI 03/06/2014 -; Laterality: left; Outcome: DCIS Family History Medical History Relation Name Comments Breast cancer Mother 2 Cancer, breast ; Cause of : Cancer, breast Relation Name Status Comments Mother 1 Mother 2 Social History Tobacco Use Types Packs/Day Years Used Date Smoking Tobacco: Never Tobacco Cessation:Counseling Given: Not Answered Comments Unknown Sex and Gender Information Value Date Recorded Sex Assigned at Not on file Legal Sex Female 3:32 AM [employer] Gender Identity Not on file Sexual Orientation Not on file Obstetrics History Para Term AB IAB SAB Ectopic Multiple Livin g Live Births 4 2 2 Date Outcome GA Total Labor Labor/2nd/3rd Weight Sex Type Anes PTL No A1 A5 Name Clin Term Term Last Filed Vital Signs Vital Sign Reading Time Taken Comments Blood Pressure 124/79 09/23/2021 1:18 PM CDT Pulse 77 09/23/2021 1:18 PM CDT Temperature 37.2 C (98.9 F) 09/23/2021 10:20 AM CDT Respiratory Rate 18 09/23/2021 1:18 PM CDT Oxygen Saturation 96% 09/23/2021 1:18 PM CDT Inhaled Oxygen Concentration - - Weight 54.4 kg (120 lb) 03/06/2014 2:10 PM [employer] Height 165.1 cm (5' 5) 03/06/2014 2:10 PM [employer] Body Mass Index 19.97 03/06/2014 2:10 PM [employer] Plan of Treatment Health Maintenance Due Date Last Done Comments Colon Cancer Screening-Colonoscopy 1950 Depression Screening 1950 Fall Risk Assessment 1950 Hepatitis C Screening 1950 Osteoporosis Screening-Bone Density Scan 1950 DTaP/Tdap/Td Vaccine (1 - Tdap) 11/11/1963 Hepatitis B Screening 1970 Zoster Vaccine (1 of 2) 2002 Well Visit 65+ 2017 Breast Cancer Screening-Mammogram 05/03/2021 05/03/2020, 04/06/2019, 02/17/2018 Covid-19 Vaccine (3 - 2023-2 5 season) 2023 05/15/2020, 04/14/2020 Influenza Vaccine (#1) 2024 , 10/27/2019, 10/21/2018, Additional history exists Pneumococcal vaccine 65+ Completed 019, 02/03/2018, 12/25/2014 Procedures Procedure Name Priority Date/Time Associated Diagnosis Comments SCREENING MAMMOGRAM RIGHT W NAKUL UNILATERAL ONLY 05/03/2020 2:22 PM CDT from Last 3 Months or Most Recently Relevant to Health Maintenance Results * Screening Mammogram Right W Nakul Unilateral Only (05/03/2020 2:22 PM CDT) Anatomical Region Laterality Modality Breast Right Mammography 05/03/2020 2:34 PM CDT Narrative 05/03/2020 2:52 PM CDT Patient Name: MALU CARUSO Iris Marquez Dr: Hilary Wagoner DO, D.O.B: 1950 Exam Date: 05/03/20 1422 Age: 69 Sex: Female MR#: [id number] Loc: RADIOLOGY REPORT Order #[id number] [facility] [place] RT Screening 3D Signed - MG UNILATERAL RIGHT DIGITAL SCREENING MAMMOGRAM 3D/2D WITH MEDIOLATERAL OBLIQUE CRANIOCAUDAL: 05/03/2020 The study was acquired using full field digital technology and interpreted from soft copy. 2D digital mammographic views, as well as 3D digital tomosynthesis were performed in the CC and MLO projections. CLINICAL: Routine mammogram. Denies any problems today. Personal history of breast cancer. No family history of breast cancer. COMPARISONS: Comparison is made to exams dated: 04/06/2019 mammogram, 02/17/2018 mammogram - [facility], 04/10/2015 mammogram, and 03/27/2014 mammogram - [facility]. BREAST TISSUE: The tissue of the right breast is heterogeneously dense, which may obscure small masses. FINDINGS: No significant masses, calcifications, or other findings are seen in the breast. There has been no significant interval change. IMPRESSION: BI-RAD 1 NEGATIVE There is no mammographic evidence of malignancy. A 1 year screening mammogram is recommended. The patient has been or will be contacted. We recommend annual screening mammography for women at average risk of breast cancer beginning at age 40, based on guidelines of the [employer] [employer] (ACR Practice Parameter for the Performance of Screening and Diagnostic Mammography) and [place] [employer]. For women with an elevated risk of breast cancer, please refer to the ACR Practice Parameter for specific screening recommendations. The patient will be entered into a reminder system with a target due date of 1 year for her next screening exam. Electronically signed by: Leon Doran M.D. ab/penrad:05/03/2020 14:52:05 School Childcare Attendant: Kristal CESAR (R)), [facility] letter sent: Normal Exam Reading location: BI-RADS: 1 Negative REPORT ELECTRONICALLY SIGNED IN OTHER VENDOR SYSTEM Resulting Agency Comment O Procedure Note Leon Doran MD - 05/03/2020 Patient Name: ARISTEO CARUSOZOHRA Haney Dr: Hilary Wagoner DO, D.O.B: 1950 Exam Date: 05/03/20 1422 Age: 69 Sex: Female MR#: [id number] Loc: RADIOLOGY REPORT Order #[id number] [facility] [place] RT Screening 3D Signed - MG UNILATERAL RIGHT DIGITAL SCREENING MAMMOGRAM 3D/2D WITH MEDIOLATERALOBLIQUE CRANIOCAUDAL: 05/03/2020 The study was acquired using full field digital technology andinterpreted from soft copy. 2D digital mammographic views, as well as 3D digital tomosynthesis were performed in the CC and MLO projections. CLINICAL: Routine mammogram. Denies any problems today. Personal historyof breast cancer. No family history of breast cancer. COMPARISONS: Comparison is made to exams dated: 04/06/2019 mammogram,02/17/2018 mammogram - [facility], 04/10/2015 mammogram, and03/27/2014 mammogram - [facility]. BREAST TISSUE: The tissue of the right breast is heterogeneously dense,which may obscure small masses. FINDINGS: No significant masses, calcifications, or other findings areseen in the breast. There has been no significant interval change. IMPRESSION: BI-RAD 1 NEGATIVE There is no mammographic evidence of malignancy. A 1 year screeningmammogram is recommended. The patient has been or will be contacted. We recommend annual screening mammography for women at average risk ofbreast cancer beginning at age 40, based on guidelines of the [place] [employer] (ACR Practice Parameter for the Performance of Screening and Diagnostic Mammography) and [place] [employer]. For women with an elevated risk of breast cancer, pleaserefer to the ACR Practice Parameter for specific screening recommendations. The patient will be entered into a reminder system with a target due dateof 1 year for her next screening exam. Electronically signed by: Leon esparza/regine:05/03/2020 14:52:05 School Childcare Attendant: Kristal FITZGERALD(Ramin)(Meli), [facility] letter sent: Normal Exam Reading location: BI-RADS: 1 Negative REPORT ELECTRONICALLY SIGNED IN OTHER VENDOR SYSTEM Hilary Wagoner DO IMG MAMMO PROCEDURES Final Result from Last 3 Months or Most Recently Relevant to Health Maintenance Insurance [id number] [email or web address] [place] [id number] [facility] Care Teams [employer] Relationship Specialty Start Date End Date Hilary Wagoner DO PCP - General 03/11/19
--- OUTSIDE RECORDS SUMMARY | 2024-10-24 13:13 | XMS_ITS | Clinical Summary ---
Author Organization [facility] Address [address] [place] [address] Care Team Providers Care Regional Sales Trainer Name Role Phone Hilary Wagoner DO Primary Care Provider [phone] Source Comments [facility],non-owned Affiliates and Associated Physician Practices is amultiple site organization consisting of ambulatory clinics and hospital sitesin [place], [place], [place] and [place]. This disclosure is being madepursuant to the Care Everywhere program and may not contain all information available regarding this patient. Last updated 17.[facility] Allergies No known active allergies Medications * Be aware that medications may not be up to date on this document. Alwaysverify current medications with the patient. ascorbic acid (VITAMIN C) 500 MG tablet Take 1 (one) tablet by mouth once daily Active Multiple Vitamins-Minera ls (MULTI VITAMIN/MINERAL S) TABS Take 1 (one) tablet by mouth once daily Active omeprazole (PRILOSEC) 40 MG capsule 1 Active rosuvastatin (CRESTOR) 5 MG tablet 1 Active docusate sodium (DOCUPRENE) 100 MG tablet Take 1 (one) tablet by mouth once daily Active famotidine (Pepcid) 40 MG tablet Take 1 (one) tablet by mouth once daily 4 Active mirabegron ER 24hr (Myrbetriq) 25 MG tablet Take 1 (one) tablet by mouth once daily 30 tablet 5 5 Active Additional Information Patient not taking.Reported on 09/13/2024 Calcium Carbonate (CALCIUM 500 PO) Active nitrofurantoin monohyd macro crystals (Macrobid) 100 MG capsule Take 1 pill twice a day starting 1 day before your bladder botox procedure 6 capsule 5 Active Active Problems Problem Noted Date Diagnosed Date OAB (overactive bladder) 06/14/2024 Assessment & Plan (09/13/2024 12:48 PM CDT): - UCx (06/14/24): E. coli - treated with macrobid - We previously reviewed the diagnosis of overactive bladder (OAB) and discussed the unclear etiology of the disease. We have provided the patient an informational handout. - For treatment of OAB, we discussed expectant management and behavioral/lifestyle modification including fluid intake and its impact on bladder symptoms. I have recommended no more than 64oz of fluid be consumed in a 24 hour period. Of those 64oz, no more than 8oz of that fluid should be caffeinated. We also discussed physical therapy for bladder training/suppression techniques, percutaneous tibial nerve stimulation, oral medications including both anticholinergics and beta-3 agonists, bladder botox injections, and sacral neuromodulation. - previous treatments attempted include: Trospium, myrbetriq - urodynamics (09/13/2024) with positive cough stress test when standing at [facility] immediately followed by stress-induced DO. As of 09/13/2024, pt saturating 7-8 pads per day and clinical description most consistent with refractory overactive bladder. - patient was counseled on management options including escalation of treatment to third line therapies. Given that she was unable to complete bladder diary as previously instructed, expressed my concern in her inability to determine whether or not clinical benefit was achieved during trial period if she pursued SNM. Patient also expressed desire to avoid sponge bathing during trial period. - For treatment of urge incontinence, we confirmed that she does not have a urinary tract infection. We also discussed initial options for management which include behavioral therapy, timed voids, Kegel suppression strategies, pelvic floor physical therapy, and anticholinergic medications but she has tried these and have these have failed. - We also discussed Posterior Tibial Nerve Stimulation (Urgent PC), Botox bladder injections or neuromodulation with Axonics Therapy. She is interested in pursuing Botox therapy. - We reviewed the procedure for Botox (onabotulinum toxin A) 100 unit injection in the bladder using an office cystoscopy and reviewed the risks, benefits and alternatives of treatment including but not limited to bleeding, infection, need for self-catheterization and need for repeat therapy. We discussed that there is a 4-8% chance of needing to catheterize with Botox and that this usually resolves in a few months; however can persist for longer periods of time. Typically Botox injections would need to be repeated every 3-12 months so this is not a permanent therapy but rather a chronic medication. - Ultimately she decided to proceed with Botox bladder injection. Plan to schedule around time she is due for 17u of botox in eye (done by oculoplastics team q4 months - next appointment scheduled for 11/03/24) - A prescription for ralph-operative antibiotics was given (macrobid 100mg BIDx3d to start 1 day prior to procedure) Assessment & Plan (07/19/2024 4:12 PM CDT): - UCx (06/14/24): E. coli - treated with macrobid - We previously reviewed the diagnosis of overactive bladder (OAB) and discussed the unclear etiology of the disease. We have provided the patient an informational handout. - For treatment of OAB, we discussed expectant management and behavioral/lifestyle modification including fluid intake and its impact on bladder symptoms. I have recommended no more than 64oz of fluid be consumed in a 24 hour period. Of those 64oz, no more than 8oz of that fluid should be caffeinated. We also discussed physical therapy for bladder training/suppression techniques, percutaneous tibial nerve stimulation, oral medications including both anticholinergics and beta-3 agonists, bladder botox injections, and sacral neuromodulation. - previous treatments attempted include: Trospium, myrbetriq - patient's symptoms are difficult to discern given poor historian. She was unable to complete bladdery diary and bring results with her to clinic. Therefore, before attempting an invasive intervention such as bladder botox or SNM, would recommend she present for urodynamics to better characterize nature of patient's leakage and ensure correct treatment is being pursued. Assessment & Plan (06/15/2024 8:54 AM CDT): - UA (06/14/24): +++ LE, + nitrites. Empiric macrobid sent to pharmacy. Will send for Ucx and call pt if change in antibiotics is warranted. - We reviewed the diagnosis of overactive bladder (OAB) and discussed the unclear etiology of the disease. We have provided the patient an informational handout. - For treatment of OAB, we discussed expectant management and behavioral/lifestyle modification including fluid intake and its impact on bladder symptoms. I have recommended no more than 64oz of fluid be consumed in a 24 hour period. Of those 64oz, no more than 8oz of that fluid should be caffeinated. We also discussed physical therapy for bladder training/suppression techniques, percutaneous tibial nerve stimulation, oral medications including both anticholinergics and beta-3 agonists, bladder botox injections, and sacral neuromodulation. - previous treatments attempted include: Trospium, myrbetriq - given poor historian and difficulty to discern patient's symptoms, after completion of antibiotic course for acute urinary tract infection, plan to have patient complete bladder diary then return to discuss results. - given that patient has failed two medications, she is a candidate for 3rd line therapies. If bladder diary confirms urge predominate mixed urinary incontinence, would consider discussion of this at next visit. Cystocele with prolapse 06/14/2024 Assessment & Plan (09/13/2024 12:48 PM CDT): - unable to complete POP-Q exam given patient's inability to valsalva/cough on command. When standing, leading edge involved anterior vaginal wall to 0.5cm outside the hymen at new patient visit. No prolapse witnessed in standing position on exam 09/13/2024. - We previously reviewed this patient's particular anatomy with her with the assistance of anatomic diagrams. We discussed the treatment options for prolapse including conservative management, pessary and surgical management. - Given that she is asymptomatic at this time, she elected observation. She was provided with written information regarding the different options. - previously explained to patient that presence of cystocele isn't necessarily main contributor to patient's incontinence symptoms and that surgical repair of cystocele would not guarantee improved bladder symptoms. Assessment & Plan (07/19/2024 4:10 PM CDT): - unable to complete POP-Q exam given patient's inability to valsalva/cough on command. When standing, leading edge involved anterior vaginal wall to 0.5cm outside the hymen. - We reviewed this patient's particular anatomy with her with the assistance of anatomic diagrams. We discussed the treatment options for prolapse including conservative management, pessary and surgical management. - Given that she is asymptomatic at this time, she elected observation. She was provided with written information regarding the different options. - previously explained to patient that presence of cystocele isn't necessarily main contributor to patient's incontinence symptoms and that surgical repair of cystocele would not guarantee improved bladder symptoms. Assessment & Plan (06/15/2024 8:52 AM CDT): - unable to complete POP-Q exam given patient's inability to valsalva/cough on command. When standing, leading edge involved anterior vaginal wall to 0.5cm outside the hymen. - We reviewed this patient's particular anatomy with her with the assistance of anatomic diagrams. We discussed the treatment options for prolapse including conservative management, pessary and surgical management. - Given that she is asymptomatic at this time, she elected observation. She was provided with written information regarding the different options. - Attempted to reinforce numerous times throughout our discussion that cystocele was likely not contributing to patient's urinary incontinence. However, it was difficulty to discern the details around her urinary incontinence; therefore, requested bladder diary be completed after resolution of acute urinary tract infection. - patient repeatedly stated she desired a bladder tuck to help with bladder leakage. 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 Acute encephalopathy 11/27/2020 Hearing loss 07/25/2020 Osteoporosis 07/25/2020 Lumbar radiculopathy 11/04/2018 Absence of breast 03/06/2014 Overview (01/21/2021): Absent breast Absent breast Familial cancer of breast 03/06/2014 Overview (01/21/2021): Breast cancer Familial cancer of breast Breast cancer Familial cancer of breast History of malignant neoplasm of breast 02/16/19 00 Encounters Date Type Department Care Team Description 09/22/2024 Telephone [facility] - [facility]NA[facility] [address], [facility] [address] [place] [phone] Jackelyn Castillo MD Botox 09/13/2024 10:45 AM CDT Procedure visit [facility] - [facility] SERVICES MANAGER [address] [place] [address] Jackelyn Castillo MD OAB (overactive bladder) ; Cystocele with prolapse 09/13/2024 Travel 07/28/2024 Travel 07/27/2024 Telephone [facility] - Centralized Scheduling [address] [place] [phone] Jackelyn Castillo MD Med Question from Last 3 Months Immunizations Immunization Administration Dates Next Due Covid Pfizer primary Monovalent 12+ yr 0.3ml INFLUENZA VACCINE, QUADR. (F LUZONE; FLULAVAL; FLUARIX; AFLURIA QUADRIVALENT; 6MO+), 0.5 ML (IIV4) 11/29/2020 Family History Medical History Relation Name Comments Blindness Neg Hx Glaucoma Neg Hx Macular Degeneration Neg Hx Social History Tobacco Use Types Packs/Day Years Used Date Smoking Tobacco: Never Smokeless Tobacco: Never Tobacco Cessation:Counseling Given: Not Answered Alcohol Use Standard Drinks/Week Comments Never 0 (1 standard drink = 0.6 oz pur e alcohol) PHQ-2 Answer Date Recorded Patient Health Questionnaire-2 Score 0 09/13/2024 Comments No Sex and Gender Information Value Date Recorded Sex Assigned at Not on file Legal Sex Female 3:10 PM [employer] Gender Identity Not on file Sexual Orientation Not on file Last Filed Vital Signs Vital Sign Reading Time Taken Comments Blood Pressure 148/90 09/13/2024 10:54 AM CDT Pulse 79 04/20/2024 3:28 PM [employer] Temperature 36.6 C (97.8 F) 09/13/2024 10:54 AM CDT Respiratory Rate 17 04/20/2024 3:28 PM [employer]ER Oxygen Saturation 98% 04/20/2024 3:28 PM [employer] LO[employer]ER Inhaled Oxygen Concentration - - Weight 56.2 kg (123 lb 12.8 oz) 025 10:54 AM CDT Height 152.4 cm (5') 09/13/2024 10:54 AM CDT Body Mass Index 24.18 09/13/2024 10:54 AM CDT Plan of Treatment Upcoming Encounters Date Type Department Care Team (Late st Contact Info) Description 11/03/2024 3:30 PM CDT Procedure visit [facility] - Ophthalmology [facility] [facility], [place] [address] Jing Miles MD [address] [place] [address] [place] [phone] 11/15/2024 10:45 AM CDT Procedure visit [facility] - [facility] SERVICES MANAGER [address] [place] [phone] Jackelyn Castillo MD [address] [place] [address] Health Maintenance Due Date Last Done Comments BONE DENSITY TESTING 1950 COLOGUARD (AGES 45-75) - COLON CA SCREENING 1950 CT COLONOGRAPHY - COLON CA SCREENING 1950 FIT - COLON CA SCREENING 1950 FLEX SIG - COLON CA SCREENING 1950 MEDICARE AWV 12 MONTHS 1950 HEPATITIS C SCREENING 11/06/1970 DTAP/TDAP/TD VACCINES (1 - Tdap) 11/11/1971 PNEUMOCOCCAL VACCINE 50+ (1 of 1 - PCV) 2002 ZOSTER VACCINE (1 of 2) 2002 MAMMOGRAM 05/03/2022 05/03/2020, 04/16, 04/06/2019, Additional history exists COVID-19 VACCINE ( season) 2024 01/05/2021, 05/15/2020, 04/14/2020 INFLUENZA VACCINE (#1) 2024 , 01/01/2023, 11/07/2021, Additional history exists Respiratory Syncytial Virus (RSV) Vaccine Pt: or over 60 yrs (1 - 1-dose 75+ series) 11/11/2027 COLON MONITORING 02/04/2032 02/03/2022 COLONOSCOPY - COLON CA SCREENING 02/04/2032 02/03/2022 Colorectal Cancer Screening 02/04/2032 DEPRESSION SCREENING Completed 06/14/2024 HEPATITIS B VACCINE Aged Out No longe r eligible based on patient's age to complete this topic HIB VACCINE Aged Out No longer eligi ble based on patient's age to complete this topic HPV VACCINE Aged Out No longer eligi ble based on patient's age to complete this topic MENINGOCOCCAL (Group B) VACCINE SHARED DECISION-MAKING Aged Out No longer eligible based on patient's age to complete this topic MENINGOCOCCAL GROUPS A/C/Y/W VACCINE Aged Out No longer eligible based on patient's age to complete this topic Procedures Procedure Name Priority Date/Time Associated Diagnosis Comments CA INTRAABDOMINAL PRESSURE TEST Routine 09/13/2024 12:38 PM CDT OAB (overactive bladder) CA CYSTOMETROGRAM W/SOFTWARE IMPLEMENTATION SPECIALIST&UP Routine 09/13/2024 12:38 PM CDT OAB (overactive bladder) CA ANAL/URINARY MUSCLE STUDY Routine 09/13/2024 12:38 PM CDT OAB (overactive bladder) from Last 3 Months Results * CA ANAL/URINARY MUSCLE STUDY, CA CYSTOMETROGRAM W/SOFTWARE IMPLEMENTATION SPECIALIST&UP, CA INTRAABDOMINAL PRESSURE TEST (09/13/2024 12:38 PM CDT) Narrative Jackelyn Castillo MD - 09/13/2024 12:38 PM CDT Jackelyn Castillo MD 09/13/2024 12:49 PM Procedure Note Multichannel Urodynamic Testing CPT Codes: 59721 simple cystometrogram with VPS & UCPP 21369 intra-abdominal pressure test 34553 EMG anal/urethral sphincter A4353 intermittent urinary catheter 20393 urinalysis, automated without microscopy The physician performed both the technical component of performing the procedure, as well as the professional component of interpreting the procedure. Indications: Multichannel urodynamic testing is being performed to fully evaluate the patient's voiding dysfunction and incontinence. The risks, benefits and alternatives have been discussed with emphasis on discomfort and urinary tract infections. Procedure Details: The patient's urethral meatus was cleaned with Betadine (used if not allergic to topical iodine, otherwise hibiclens was used). A 7 Fr. Single sensor air-charged catheter was place into the vagina or into the rectum if the pelvic prolapse required restitution for adequate testing. A 7 Fr. Dual sensor air-charged catheter was inserted into the urethra. During testing, the patient's prolapse was reduced with either procto-swabs, or digitally. Complex Urinary Flow Study: unable to be completed as pt was unable to void on command at beginning of procedure. The residual urine was 160 cc (possibly falsely elevated due to inability to void prior to straight catheterization). The residual urine was determined by urethral catheterization. Cystometrogram: The bladder was filled with room temperature water at a rate of 100 cc per minute. The patient tolerated this and she was found to have: First sensation (S1) at 233 cc. Sensation of fullness at 427 cc. Maximal cystometric capacity of 501 cc. She does have normal bladder compliance. She does not have loss of urine with a rise in detrusor pressure. Valsalva leak point pressure (VLPP, in cmH20): VLPP at 150 cc: N/a - no leak VLPP at [facility] : [id number] Urethral pressure profilometry (UPP): not peformed Voiding pressure study (SOFTWARE IMPLEMENTATION SPECIALIST): She voided via detrusor contraction. Her maximal detrusor during void (Pdet max) was 40 cm water. Pdet at Qmax was 24 cmH2O. Her void was phasic. Her post void residual by calculation during the voiding pressure study was 0 cc. Electromyolography (EMG) Provocative maneuvers produced appropriate changes in waveforms. EMG patches were placed perianally and on the leg for ground. Normal response with squeeze and relaxation was noted. Normal EMG was noted with appropriate relaxation with study. No evidence of detrusor dyssynergia. Impression: [facility] 501. positive stress incontinence in standing position at [facility] immediately followed by stress induced DO (not pictures on graph due to misplacement of catheters at that time), positive detrusor overactivity. Emptied effectively. Jackelyn Castillo MD, FACOG Urogynecology and Reconstructive Pelvic Surgery Jackelyn Castillo MD PROCEDURE/MINOR SURGICAL ORDERAB LES Final Result from Last 3 Months Insurance [employer] MEDICARE E[employer]ENCE MED[employer]ARE Care Teams Regional Sales Trainer Relationship Specialty Start Date End Date Hilary Wagoner DO [address] [place] [phone] PCP - General 12/18/20
== END 2024-10-24 13:06 | disposition home or self-care (01) ==
PROVIDERS: PCP Internal Medicine; Visit Provider Internal Medicine
DX: M81.0 Age-related osteoporosis without current pathological fracture (principal); M85.89 Other specified disorders of bone density and structure, multiple sites; Z78.0 Asymptomatic menopausal state
CPT/HCPCS: 77080